=== PATIENT | male | born 2000 | race Caucasian/White ===

== ENCOUNTER 2023-12-19 12:25 | Emergency (ER) | payer OTHER ==
[2023-12-19] MEDS ORDERED: Acetaminophen 500 MG TAB ONE (14:01)
== END 2023-12-19 14:51 | disposition home or self-care (01) ==
LOC: ERS 12:25
DX: J18.9 Pneumonia, unspecified organism (principal); F17.220 Nicotine dependence, chewing tobacco, uncomplicated
CPT/HCPCS: 71045